=== PATIENT | female | born 1980 | race Caucasian/White ===

== ENCOUNTER → 2018-11-13 07:08 | Outpatient (CLI) | payer OTHER, SELFPAY ==
[2018-11-13 07:47] LABS: Add Manual Diff / Slide Review NO; Basophils Absolute Auto 0 /uL (0-100); Eosinophils Absolute Auto 400 /uL (0-450); Eosinophils Percent Auto 8.1 % (2-4); Hemoglobin 14.1 g/dL (12.0-16.0); Lymphocytes Absolute Auto 1500 /uL (1100-4500); Lymphocytes Percent Auto 33.3 % (25-40); Mean Corpuscular HGB Conc 33.5 % (30-36); Mean Corpuscular Hemoglobin 29.5 PG (26-34); Mean Corpuscular Volume 88.3 fL (80-100); Monocytes Absolute Auto 300 /uL (0-900); Neutrophils Absolute Auto 2400 /uL (1500-7000); Neutrophils Percent Auto 51.6 % (50-75); Platelet Count 279 X10^3/uL (150-400); Red Blood Cell Count 4.76 X10^6/uL (4.0-5.2); Red Cell Distribution Width 13.6 % (11.6-14.8); White Blood Cell Count 4.6 X10^3/uL (4.5-11.0)
[2018-11-13 08:01] LABS: Alanine Aminotransferase 19 IU/L (9-52); Albumin 4.3 g/dL (3.5-5.0); Albumin Globulin Ratio 1.3 (1.0-2.8); Alkaline Phosphatase 77 U/L (38-126); Aspartate Aminotransferase 27 IU/L (14-36); Bilirubin Total 0.8 mg/dL (0.2-1.3); Blood Urea Nitrogen 14 mg/dL (7-17); Carbon Dioxide 28 mmol/L (22-32); Chloride 101 mmol/L (98-107); Cholesterol 195 mg/dL (140-199); Estimated Glomerular Filt Rate > 60.0 mL/min (>60); Globulin 3.3 g/dL (1.7-4.1); Glucose 91 mg/dL (70-100); HDL Cholesterol 89 mg/dL (40-60); HEMOLYSIS 25 (0-50); LDL Cholesterol Calculated 91 mg/dL (<100); Potassium 4.4 mmol/L (3.4-5.1); Sodium 138 mmol/L (137-145); Total Protein 7.6 g/dL (6.3-8.2); Triglycerides 76 mg/dL (35-150)
[2018-11-21 23:34] LABS: (tTG) Ab, IgA < 1 U/mL
== END ==
PROVIDERS: Visit Provider Family Medicine
DX: R10.84 Generalized abdominal pain (principal); Z01.419 Encounter for gynecological examination (general) (routine) without abnormal findings
CPT/HCPCS: 36415; 80053; 80061; 82784; 83036; 83516; 85025; 86255

== ENCOUNTER → 2021-04-23 15:58 | Outpatient (CLI) | payer OTHER, SELFPAY ==
--- NOTE | 2021-04-23 | DI.MG.S_ITS ---
BILATERAL DIGITAL SCREENING MAMMOGRAM 3D/2D WITH CAD: 04/23/2021 CLINICAL: Routine screening. Baseline exam. No prior exams were available for comparison. The tissue of both breasts is heterogeneously dense. This may lower the sensitivity of mammography. Current study was also evaluated with a Computer Aided Detection (CAD) system. No significant masses, calcifications, or other findings are seen in either breast. IMPRESSION: NEGATIVE There is no mammographic evidence of malignancy. A 1 year screening mammogram is recommended. This exam was interpreted at Station ID: [id number]. NOTE: For mammograms, a report in lay terms will be sent to the patient. Approximately 15% of breast malignancies will not be visualized mammographically. In the management of a palpable breast mass, a negative mammogram must not discourage biopsy of a clinically suspicious lesion. Electronically Signed By: Russell Solis M.D., jr/alfonso:04/23/2021 16:24:01 letter sent: Normal Exam ACR BI-RADS Category 1: Negative 3341F
--- NOTE | 2021-04-23 16:02 | DI.US.S_ITS ---
PROCEDURE: US PELVIC COMPLETE INDICATIONS: Heavy periods TECHNIQUE: Real-time scanning was performed of the pelvic organs, with image documentation. Additional endovaginal scanning was necessary due to incomplete visualization of the adnexal and endometrial structures by transabdominal scanning. COMPARISON: None. FINDINGS: Uterus: Uterus is anteverted and normal in size at 9.1 x 4.2 x 5.0 cm. The myometrium is heterogeneous. The endometrium measures 10 mm combined thickness. Small amount of fluid within the lower uterine segment. Right lower uterine segment pedunculated fibroid is present measuring up to 4.1 cm. Ovaries: Dominant left follicular cyst measuring 1.3 cm; otherwise normal ovaries. Other: No pathologic free abdominal or pelvic fluid. IMPRESSION: 1. 4.1 cm right pedunculated subserosal fibroid. 2. Dominant left follicular cyst. We strive to produce accurate, complete, and clear reports of imaging services. To assist us in improving patient care, this report was composed using standard report templates and voice recognition software. Therefore, it may contain abnormal punctuation, insertions and/or omissions. Occasional wrong-word or sound-alike substitutions may occur. Though we review the report and make efforts to correct it, we do recommend that the report be read carefully in proper context to recognize any text inaccuracies. Dictated by: Lyle MEIER Interpreted: Petr Tinoco MD on 04/23/2021 at 17:00 Transcribed by: SUMMER on 04/23/2021 at 17:03 Approved by: Petr Tinoco M.D. on 04/23/2021 at 19:57
== END ==
PROVIDERS: Referring Provider Obstetrics & Gynecology; Visit Provider Obstetrics & Gynecology
DX: N92.0 Excessive and frequent menstruation with regular cycle (principal); Z12.31 Encounter for screening mammogram for malignant neoplasm of breast; D25.2 Subserosal leiomyoma of uterus; N83.02 Follicular cyst of left ovary
CPT/HCPCS: 76830; 76856; 77063; 77067

== ENCOUNTER → 2021-07-13 16:45 | Outpatient (CLI) | payer OTHER, SELFPAY | PROVIDERS: Visit Provider Obstetrics & Gynecology | DX: R30.0 Dysuria (principal) | CPT/HCPCS: 87077; 87086; 87186 ==

== ENCOUNTER → 2022-03-10 16:17 | Outpatient (CLI) | payer OTHER, SELFPAY ==
[2022-03-10 17:37] LABS: Appearance Urine UA CLEAR; Bilirubin Urine UA NEGATIVE (NEGATIVE); Color Urine UA YELLOW; Glucose Urine UA NEGATIVE (Negative); Ketones Urine UA NEGATIVE (NEGATIVE); Leukocyte Esterase Urine UA NEGATIVE (NEGATIVE); Nitrite Urine UA NEGATIVE (Negative); Occult Blood Urine UA 1+ (Negative); Protein Urine UA NEGATIVE (Negative); Specific Gravity Urine UA <=1.005 (1.000-1.035); Urobilinogen Urine UA 0.2 E.U./dL (0.2)
[2022-03-10 17:40] LABS: pH Urine UA 6.5 (4.5-8.0)
[2022-03-10 18:29] LABS: Bacteria Urine None Seen; Culture Indicated Urine Cult Not Indicated; RBC Urine 0-1/HPF (0-5/HPF); Squamous Epithelial Cell Urine None Seen (0-5/HPF); WBC Urine None Seen (0-5/HPF)
== END ==
PROVIDERS: Referring Provider Obstetrics & Gynecology; Visit Provider Obstetrics & Gynecology
DX: R35.0 Frequency of micturition (principal); R39.15 Urgency of urination
CPT/HCPCS: 81001

== ENCOUNTER → 2022-03-16 10:41 | Outpatient (CLI) | payer OTHER, SELFPAY ==
--- NOTE | 2022-03-16 10:42 | DI.US.S_ITS ---
PROCEDURE: US PELVIC COMPLETE INDICATIONS: FIBROID; OVARIAN CYST TECHNIQUE: Real-time scanning was performed of the pelvic organs, with image documentation. Additional endovaginal scanning was necessary due to incomplete visualization of the adnexal and endometrial structures by transabdominal scanning. COMPARISON: [facility], US, US PELVIC COMPLETE, 04/23/2021, 16:17. FINDINGS: Uterus: Uterus is anteverted and normal in size at 9.7 x 5.0 x 6.4 cm. The myometrium is homogeneous. The endometrium measures 13.9 mm combined thickness. There is a right Subserosal fibroid which measures 4.5 x 3.4 x 3.1 cm in the lower uterine segment. This previously measured 4.1 x 2.9 x 2.9 cm on the study dated April 23, 2021. Ovaries: The right ovary measures 3.1 x 2.6 x 3.5 cm, with a calculated ovarian volume of 14.4 cc. The left ovary measures 2.3 x 2.0 x 1.4 cm, with a calculated ovarian volume of 3.4 cc. The ovaries have a normal sonographic appearance. Less than 12 follicles can be seen in each ovary. There is a nonvascular complex cyst in the right ovary which measures 2.2 x 2.3 x 1.9 cm. Other: No pathologic free abdominal or pelvic fluid. IMPRESSION: 1. Slight increase in the size of the right lower uterine segment uterine fibroid when compared with the ultrasound dated April 23, 2021. 2. Probable right hemorrhagic cyst. Endometrioma could also be considered in the differential; however this is new when compared with the prior study favoring hemorrhagic cyst. 6-12 week follow-up recommended to ensure resolution of this finding. We strive to produce accurate, complete, and clear reports of imaging services. To assist us in improving patient care, this report was composed using standard report templates and voice recognition software. Therefore, it may contain abnormal punctuation, insertions and/or omissions. Occasional wrong-word or sound-alike substitutions may occur. Though we review the report and make efforts to correct it, we do recommend that the report be read carefully in proper context to recognize any text inaccuracies. Dictated by: Maribel Leigh M.D. on 03/16/2022 at 15:59 Approved by: Maribel Leigh M.D. on 03/16/2022 at 16:01
== END ==
PROVIDERS: PCP Family Medicine; Referring Provider Obstetrics & Gynecology; Visit Provider Obstetrics & Gynecology
DX: N92.0 Excessive and frequent menstruation with regular cycle (principal); D25.2 Subserosal leiomyoma of uterus; N83.291 Other ovarian cyst, right side
CPT/HCPCS: 76830; 76856

== ENCOUNTER → 2022-04-21 09:29 | Outpatient (CLI) | payer OTHER, SELFPAY ==
[2022-04-21 10:40] LABS: COVID-19 CEPHEID 4-PLEX PCR Negative (Negative); Influenza A - CEPHEID Flu A NEGATIVE (NEGATIVE); Influenza B - CEPHEID Flu B NEGATIVE (NEGATIVE); Respiratory Syncytial Virus Negative (Negative)
== END ==
PROVIDERS: PCP Family Medicine; Visit Provider Nurse Practitioner Family
DX: J02.9 Acute pharyngitis, unspecified (principal)
CPT/HCPCS: 0241U; 87070

== ENCOUNTER → 2022-09-05 16:17 | Outpatient (CLI) | payer OTHER, SELFPAY ==
--- NOTE | 2022-09-05 | DI.MG.S_ITS ---
BILATERAL DIGITAL SCREENING MAMMOGRAM 3D/2D WITH CAD: 09/05/2022 CLINICAL: Routine screening. Comparison is made to exam dated: 04/23/2021 mammogram - [facility]. Both breasts are heterogeneously dense, which may obscure small masses (category c / 51-75% glandular tissue). Current study was also evaluated with a Computer Aided Detection (CAD) system. No significant masses, calcifications, or other findings are seen in either breast. There has been no significant interval change. IMPRESSION: NEGATIVE There is no mammographic evidence of malignancy. A 1 year screening mammogram is recommended. Based on the Tyrer Cuzick model (a risk assessment model) the patient's lifetime risk is 13.0% and her 10 year risk is 1.9%. According to the ACR, ACS, and NCCN guidelines, an annual breast MRI exam along with mammogram is recommended if the patient's lifetime risk is 20% or greater. This exam was interpreted at Station ID: [id number]. NOTE: For mammograms, a report in lay terms will be sent to the patient. Approximately 15% of breast malignancies will not be visualized mammographically. In the management of a palpable breast mass, a negative mammogram must not discourage biopsy of a clinically suspicious lesion. Electronically Signed By: Luis M shrestha/alfonso:09/06/2022 08:06:19 letter sent: Normal Exam ACR BI-RADS Category 1: Negative 3341F
--- NOTE | 2022-09-05 16:18 | DI.US.S_ITS ---
PROCEDURE: US PELVIC COMPLETE INDICATIONS: OVARIAN CYST/FIBROID FOLLOW UP TECHNIQUE: Real-time scanning was performed of the pelvic organs, with image documentation. Additional endovaginal scanning was necessary due to incomplete visualization of the adnexal and endometrial structures by transabdominal scanning. COMPARISON: [facility], US, US PELVIC COMPLETE, 03/16/2022, 10:55. FINDINGS: Uterus: Uterus is anteverted and enlarged in size at 9.5 x 4.6 x 5.5 cm. The myometrium is mildly heterogeneous. 4.1 x 3.5 x 4.9 cm subserosal fibroid in anterior right myometrium is seen. This was previously measured at 4.5 x 3.4 x 3.1 cm in size. The endometrium measures 9.3 mm combined thickness. No gross endometrial mass or fluid. Ovaries: The right ovary measures 2.1 x 2.1 x 2.6 cm, with a calculated ovarian volume of 6.3 cc. The left ovary measures 3.8 x 2.6 x 3.2 cm, with a calculated ovarian volume of 16.8 cc. Dominant follicle is seen in left ovary measures 1.4 x 0.8 x 1.4 cm in size. Less than 12 follicles can be seen in each ovary. No adnexal masses are seen. Other: No pathologic free abdominal or pelvic fluid. IMPRESSION: 1. Dominant follicle in right ovary as above. Otherwise normal appearing bilateral ovaries. 2. Enlarged uterus with uterine fibroids slight increase in size since previous study. No gross endometrial mass or fluid. We strive to produce accurate, complete, and clear reports of imaging services. To assist us in improving patient care, this report was composed using standard report templates and voice recognition software. Therefore, it may contain abnormal punctuation, insertions and/or omissions. Occasional wrong-word or sound-alike substitutions may occur. Though we review the report and make efforts to correct it, we do recommend that the report be read carefully in proper context to recognize any text inaccuracies. Dictated by: Nick Lerner M.D. on 09/05/2022 at 17:33 Approved by: Nick Lerner M.D. on 09/05/2022 at 17:35
== END ==
PROVIDERS: PCP Family Medicine; Referring Provider Obstetrics & Gynecology; Visit Provider Obstetrics & Gynecology
DX: Z12.31 Encounter for screening mammogram for malignant neoplasm of breast (principal); D25.2 Subserosal leiomyoma of uterus; N85.2 Hypertrophy of uterus; N83.209 Unspecified ovarian cyst, unspecified side
CPT/HCPCS: 76830; 76856; 77063; 77067; 93975

== ENCOUNTER 2023-01-16 12:09 | Day surgery (SDC) | payer OTHER, SELFPAY ==
[2023-01-11 10:45] VITALS: BMI 29.9
[2023-01-16] VITALS (9 sets, daily range): BP systolic 100–134; BP diastolic 55–79; PULSE 70–94; RESP 15–20; TEMP 35.7–36.6; O2SAT 95–100; BMI 29.9
--- NOTE | 2023-01-16 | PATH_ITS ---
[facility] Accession Number: [id number] No. of containers..01 Tissue . 01 Material submitted: . uterus - UTERUS, BILATERAL FALLOPIAN TUBES . 01 Diagnosis: Uterus and Bilateral Fallopian Tubes; Hysterectomy and Bilateral Salpingectomy: Cervix: Mild chronic cervicitis with associated reactive and metaplastic changes, and tunnel clusters also present. Negative for dysplasia and malignancy. Endometrium: Proliferative phase endometrium without endometrial polyps, atypia, hyperplasia, and malignancy. Myometrium: Benign intramural leiomyoma, 4.5 cm in diameter. Focal area with prominent vascular ectasia. Bilateral fallopian tubes: No pathologic abnormalities. MRV 01/19/2023 1622 Local . 01 Electronically signed: . Lloyd Ford MD, Pathologist NPI- [id number] . 01 Gross description: . Received in formalin, labeled with the patient's name and uterus and bilateral tubes, is an intact uterus with attached cervix and two detached fallopian tube segments. The uterus and cervix weigh 190 grams, 10.4 cm fundus to cervix by 6.5 cm cornu to cornu by 4.8 cm anterior to posterior. The cervix is 5 cm long by up to 3.4 cm in diameter. The anterior cervix is inked blue. On the anterior right is a bulging 4.5 x 4.0 x 3.8 cm white-gatica firm fibrous nodule. The os is 0.7 cm and the endocervical mucosa is pink-white, smooth and glistening. The endometrial cavity is 6.0 x 2.0 cm, pink-gatica, plush and pillowy with no polyps or lesions. The endometrial thickness is up to 0.4 cm. The myometrium is pink-gatica and trabecular, 2.5 cm thick, with dilated vasculature near the cornu and one aforementioned white-gatica firm fibrous nodule. The nodule is free from hemorrhage, necrosis, and calcification. . The two detached fallopian tube segments are 3.8 and 4.0 cm long with an average 0.6 cm diameter. Both are fimbriated and undesignated. One isw arbitrarily inked blue. Armorer Technician sections are submitted: A1 - Anterior cervix. A2 - Posterior cervix. A3 - Anterior endomyometrium. A4 - Posterior endomyometrium. A5 - Hypervascular cornu. A6 - Armorer Technician nodule. A7 - Longer fallopian tube with entire, bisected fimbriae. A8 - Fontana fallopian tube with entire, bisected fimbriae. (SF:[id number]) /MRV 01/19/2023 1622 Local . 01 Pathologist provided ICD-10: N92.1, D25.9 . 01 CPT . 785688 Specimen Comment: A courtesy copy of this report has been sent to [phone] Performed at: 01 [facility] [address] [place] [address], [place], [place] [id number] MD Edward Arvizu MD Phone: [phone]
--- NOTE | 2023-01-16 09:32 | PM.PREOP ---
Pre-operative Note COVID-19 COVID-19 status: Not tested Interval Note History & Physical reviewed/Exam performed by Physician: Yes Changes to H&P: No
[2023-01-16] MEDS: LACTATED RINGERS 1,000 ML 42 ML IV ×2 (12:47→13:51)
[2023-01-16] MEDS: SCOPOLAMINE 1 PATCH TOP (12:48)
--- NOTE | 2023-01-16 12:51 | SUR.OPER ---
Lithotomy on padded OR bed. [place] Pad Positioner under torso. Head on pillow, arms padded and tucked at sides. Legs secured in padded yellow fins stirrups.
[2023-01-16] MEDS: CEFAZOLIN 2 GM/100 ML PREMIX 100 ML IV (13:20)
[2023-01-16] MEDS: ACETAMINOPHEN IV 1,000 MG/100 ML VIAL 400 MG IV (13:25)
[2023-01-16] MEDS: BUPIVACAINE 0.25% (PF) 30 ML, EPINEPHrine 0.15 MG INJ (13:53)
[2023-01-16] MEDS: ROPIVACAINE 0.2% PF 2 MG/ML 20ML AMP 20 ML INJ (15:13)
[2023-01-16] MEDS: ONDANSETRON 4 MG/2 ML INJ IV (15:36)
--- NOTE | 2023-01-16 15:44 | P.OP_ITS ---
Operative Date/Time/Diagnoses Date of procedure: 01/16/23 Time of procedure: 13:45 Pre-op diagnosis: Menometrorrhagia Uterine fibroid Adenomyosis (Presumptive diagnosis) Post-op diagnosis: same Procedure & Clinicians Procedure: Procedures Operation Date: 01/16/23 13:30 Actual Procedure Side Surgeon p Total Laparoscopic Hysterectomy with bilateral salpingectomies Not Applicable Bharathi Diehl MD Indications: Mirna is a 41-year-old , LMP ongoing who returned in December after having a follow-up ultrasound performed on 09/05/2022 which showed: PROCEDURE:? US PELVIC COMPLETE ? INDICATIONS:? OVARIAN CYST/FIBROID FOLLOW UP ? TECHNIQUE:? Real-time scanning was performed of the pelvic organs, with image documentation.? Additional endovaginal scanning was necessary due to incomplete visualization of the adnexal and endometrial structures by transabdominal scanning.? ? COMPARISON:? [facility], , US PELVIC COMPLETE, 03/16/2022, 10:55. ? FINDINGS:? ?? Uterus:? Uterus is anteverted and enlarged in size at 9.5 x 4.6 x 5.5 cm. The myometrium is mildly heterogeneous.? 4.1 x 3.5 x 4.9 cm subserosal fibroid in anterior right myometrium is seen.? This was previously measured at 4.5 x 3.4 x 3.1 cm in size.? The endometrium measures 9.3 mm combined thickness.? No gross endometrial mass or fluid. ? Ovaries:? The right ovary measures 2.1 x 2.1 x 2.6 cm, with a calculated ovarian volume of 6.3 cc. The left ovary measures 3.8 x 2.6 x 3.2 cm, with a calculated ovarian volume of 16.8 cc.? Dominant follicle is seen in left ovary measures 1.4 x 0.8 x 1.4 cm in size. ?Less than 12 follicles can be seen in each ovary.? No adnexal masses are seen. ? Other:? No pathologic free abdominal or pelvic fluid.? ? IMPRESSION:? 1. Dominant follicle in right ovary as above.? Otherwise normal appearing bilateral ovaries. 2. Enlarged uterus with uterine fibroids slight increase in size since previous study.? No gross endometrial mass or fluid. Patient is aware of these results and aware that over time both uterus is enlarged slightly but also the fibroid in the right lateral lower uterine segment is also continuing to grow. Her menses remain irregular without intermenstrual or postcoital bleeding but the flow is extremely heavy lasting 5- 7 days with clots and the patient has recently been diagnosed as being anemic. She has been started on iron by her PCP for the anemia which was discovered upon evaluation of hair loss. Patient has been taking tranexamic acid in reduce doses because full dosage of 1300 mg t.i.d. was not well tolerated. TXA has been helpful but her periods remain 5-7 days in length although the flow is slightly less. Endometrial biopsy performed 12/30/2022 be benign secretory endometrium. Pap performed 03/2021 shows no cytological abnormality with negative HPV. After consideration of all therapeutic options, patient would very much like to proceed with hysterectomy with bilateral salpingectomy as soon as it can be scheduled. She presents today for her scheduled surgery. Surgeon: Bharathi Diehl Emergency Medical Service Manager: Mai Arenas Anesthesia Type: General Operative Notes Findings: The anterior cul-de-sac demonstrates changes consistent with prior section. The uterus is upper limits of normal size and boggy. Fallopian tubes demonstrates changes consistent with prior tubal ligation. Distal fragments of fallopian tube remain on both sides adjacent to the ovary. Both ovaries appear to be normal. There was no evidence of endometriosis in the posterior cul-de-sac or anterior cul-de-sac. There was a single fibroid which is present subserosal early both anterior and posterior on the right side of the lower and mid uterine segments. Access to the ascending uterine vessels was available distal to the inferior edge of the fibroid.. No abnormality of the Closure Type: primary Specimen(s): left tube, right tube and uterus Applied: catheter Estimated blood loss (mL): 100 Blood products transfused: none Procedure in detail: With the patient in modified dorsal lithotomy position preparations were made by prepping and draping the patient in usual manner for vaginal surgery and insertion of Bird catheter. A pre-surgical time-out was then taken in accordance with formerly [facility] policy. A bivalve speculum was then placed in the vagina and the cervix visualized. The anterior lip of the cervix was then grasped with a single-tooth tenaculum. The uterus was sounded to 8 cm, the endocervical canal dilated slightly, and a Outbrain uterine manipulator with a medium colpotomy cup was placed. The umbilicus was then infiltrated with 0.5% Marcaine with epinephrine. A 1 cm umbilical incision was made transversely and a Veress needle was used to insufflate the abdominal cavity with carbon dioxide. Once the abdomen was appropriately insufflated, a 5 mm trocar and sleeve were then placed through the umbilical incision. The scope was placed through the trocar and the initial assessment of the intra-abdominal contents carried out. A 2nd and 3rd 5 mm port was then placed 1st in the right mid quadrant from then the left mid quadrant by infiltration of the skin and subcutaneous tissues, a 1 cm transverse incision and insertion of the 5 mm bladeless port. Using a 3 puncture technique, the abdomen and pelvis were inspected laparoscopy and photographically documented. Uterus is mobilized with the Ecopolare manipulator and attention turned to the left adnexa. The distal tube was then grasped and the fimbria ovarica divided after coagulation with the PowerSeal device. The distal fragment of 2 was then removed through 1 5 mm ports. The dissection was then carried out toward the cornua then carried down using the PowerSeal device so as to divide the utero-ovarian ligament and the round ligament with blunt and sharp dissection of the broad down to the level of the uterine artery. The uterine artery was then skeletonized after development of a bladder flap, coagulated, and divided. Once hemostasis was assured on the left side attention was turned to the right and the distal tubal fragment was coagualed and divided then removed through one of the 5 mm ports. The utero-ovarian ligament, round ligament, and broad ligament were dissected in a fashion exactly the same as it had been on the left while shirting along the lateral surface of the fibroid. The right uterine artery was then visualized after skeletonization and coagulated and divided. The uterus was seen to matthew after coagulation of both your arteries and the cup was identified through the vaginal muscularis at its insertion with the body of the cervix. Circumferential excision of the vaginal cup was accomplished without difficulty using monopolar current and the uterus mobilized. The uterus was then removed through the vagina and the vaginal cuff closed [id number] with a series of 0 Vicryl [id number] stitches. Hemostasis was excellent, the abdomen was re-insufflated, and the pelvis ins pected laparoscopically. The pelvis was inspected for any abnormality or bleeding, and the ureters were each seen to be peristalsing freely. With complete hemostasis assured, the pneumoperitoneum was vented and the ports removed. All of the 5 mm ports were then closed with 4-0 Monocryl on the skin using inverted interrupted sutures. Skin glue was placed and after the glue was dried, an appropriate dressing was applied. The case was then terminated, the patient awakened, and then transferred to PACU after having tolerated the procedure well. Complications: none Post-operative Condition: stable Disposition: PACU Plan for aftercare: Recovery in ambulatory surgery in discharge home later today if pain is under control and she is tolerating oral intake well.
--- NOTE | 2023-01-16 15:49 | SUR.PHASEI ---
after oral airway was removed, patient coughed/vomited a small amount of clear fluid. Anesthesiologist present, patient's mouth was suctioned. Zofran provided.
[2023-01-16] MEDS: OXYCODONE IR 5 MG TABLET PO (16:45)
--- NOTE | 2023-01-16 16:51 | SUR.PHASEI ---
Report was called to Viky, then patient transferred to the floor with her belongings bag x2. Patient reported mild nausea before transfer. Queasease and thompson estephania provided. Bedside report given to Viky. Condition stable.
--- NOTE | 2023-01-16 17:09 | PC.NURSE ---
Patient arrived from PACU at 1645 this afternoon, A&OX4, VSS, on RA. She reports feeling nauseated and pain to abdomen 5-6/10 this evening. Dressings to abdomen x3 lap sites c/d/i. Bird in place. LR at 100 ml/hr. Call light in reach, SCD's on. Admission assessment completed. at bedside supportive, frequent monitoring.
--- NOTE | 2023-01-16 18:16 | PM.DS.1 ---
History of Present Illness History of Present Illness Date Patient Seen: 01/16/23 Time Patient Seen: 18:16 Chief complaint: Menometrorrhagia, Fibroid, Adenomyosis Narrative: Mirna is a 41-year-old , LMP ongoing who returned in December after having a follow-up ultrasound performed on 09/05/2022 which showed: PROCEDURE:? US PELVIC COMPLETE ? INDICATIONS:? OVARIAN CYST/FIBROID FOLLOW UP ? TECHNIQUE:? Real-time scanning was performed of the pelvic organs, with image documentation.? Additional endovaginal scanning was necessary due to incomplete visualization of the adnexal and endometrial structures by transabdominal scanning.? ? COMPARISON:? Located Within [facility], , US PELVIC COMPLETE, 03/16/2022, 10:55. ? FINDINGS:? ?? Uterus:? Uterus is anteverted and enlarged in size at 9.5 x 4.6 x 5.5 cm. The myometrium is mildly heterogeneous.? 4.1 x 3.5 x 4.9 cm subserosal fibroid in anterior right myometrium is seen.? This was previously measured at 4.5 x 3.4 x 3.1 cm in size.? The endometrium measures 9.3 mm combined thickness.? No gross endometrial mass or fluid. ? Ovaries:? The right ovary measures 2.1 x 2.1 x 2.6 cm, with a calculated ovarian volume of 6.3 cc. The left ovary measures 3.8 x 2.6 x 3.2 cm, with a calculated ovarian volume of 16.8 cc.? Dominant follicle is seen in left ovary measures 1.4 x 0.8 x 1.4 cm in size. ?Less than 12 follicles can be seen in each ovary.? No adnexal masses are seen. ? Other:? No pathologic free abdominal or pelvic fluid.? ? IMPRESSION:? 1. Dominant follicle in right ovary as above.? Otherwise normal appearing bilateral ovaries. 2. Enlarged uterus with uterine fibroids slight increase in size since previous study.? No gross endometrial mass or fluid. Patient is aware of these results and aware that over time both uterus is enlarged slightly but also the fibroid in the right lateral lower uterine segment is also continuing to grow. Her menses remain irregular without intermenstrual or postcoital bleeding but the flow is extremely heavy lasting 5-7 days with clots and the patient has recently been diagnosed as being anemic. She has been started on iron by her PCP for the anemia which was discovered upon evaluation of hair loss. Patient has been taking tranexamic acid in reduce doses because full dosage of 1300 mg t.i.d. was not well tolerated. TXA has been helpful but her periods remain 5-7 days in length although the flow is slightly less. Endometrial biopsy performed 12/30/2022 be benign secretory endometrium. Pap performed 03/2021 shows no cytological abnormality with negative HPV. After consideration of all therapeutic options, patient would very much like to proceed with hysterectomy with bilateral salpingectomy as soon as it can be scheduled. She presents today for her scheduled surgery. Discharge Providers Provider Date of admission: 01/16/2023 Discharge Date: 01/16/23 Primary care physician: John Leiva MD Discharge provider: Bharathi Diehl MD Summary Hospital Course Discharge Diagnosis: Menometrorrhagia Uterine fibroid Adenomyosis S/P total laparoscopic hysterectomy with bilateral salpingectomy Hospital Course: Mirna was admitted on the morning of 01/16/2023 and underwent an uneventful total laparoscopic hysterectomy with bilateral salpingectomy. Full details of the procedure are well summarized on my operative note of that date. Following surgery she did extremely well with prompt return of bowel and bladder function, she is ambulating independently, tolerating a regular diet, and her pain is well controlled with oral pain medications. She will be discharged on the afternoon of 01/16/2023 in an afebrile normotensive condition after counseling regarding precautionary symptoms, limitations of activity, medications, and plans for follow-up which will be in 2 weeks. Medications at discharge include resumption of all preoperative medications, and oxycodone 5 mg every 4-6 hours as needed for pain, dispense 20 with no refills. Status at Discharge Cognitive/behavioral status at discharge: oriented Functional status at discharge: independent ambulation Overall status at discharge: patient is progressing back to baseline Time Spent with Patient Time spent: Less than 30 minutes Exam Vital Signs (past 8 hours): - 01/16/23 12:28 01/16/23 15:33 01/16/23 15:38 Temperature 98 F 96.8 F L Pulse Rate 86 88 93 H Respiratory Rate 17 18 16 Blood Pressure 134/79 109/64 108/66 Pulse Oximetry 100 98 97 Oxygen Delivery Method Room Air Simple Mask Room Air Oxygen Flow Rate 23 15:43 01/16/23 15:48 01/16/23 15:59 Temperature 97.3 F L Pulse Rate 94 H 86 84 Respiratory Rate 15 15 15 Blood Pressure 105/62 104/63 105/79 Pulse Oximetry 97 95 97 Oxygen Delivery Method Room Air Room Air Room Air Oxygen Flow Rate 01/16/23 17:05 01/16/23 17:35 Temperature 96.9 F L 97.1 F L Pulse Rate 76 70 Respiratory Rate 18 18 Blood Pressure 104/55 L 100/59 L Pulse Oximetry 99 99 Oxygen Delivery Method Oxygen Flow Rate 0 0 Oxygen Delivery Method Room Air Oxygen Flow Rate 0 Const General: cooperative and comfortable Nutritional Appearance: average body habitus Orientation: alert and oriented x3 HENMT Head: normal to inspection, atraumatic and abrasion Ears: hearing grossly normal bilaterally Face and sinus: face symmetric Eyes General: appearance normal, both eyes and all related structures Conjunctivae: conjunctivae normal Sclera: sclerae normal EOM: EOM intact bilaterally Neck Neck: normal visual inspection Resp Effort & Inspection: normal respiratory effort and able to speak in complete sentences Auscultation: clear to auscultation bilaterally Cardio Rate: regular rate Rhythm: regular rhythm Heart Sounds: S1 normal, S2 normal and no murmurs GI Inspection: normal to inspection and incision (Surgical dressings clean and dry) Palpation: soft, no hepatosplenomegaly and tender (Mild, diffuse postsurgical tenderness) External Female Exam: other (No significant bleeding noted) Extrem General: no calf tenderness Psych Appearance: grossly normal Mental Status: mental status grossly normal Speech and Movement: speech and movement normal Mood: congruent mood Affect: normal affect Attitude: cooperative Thought Process: normal Thought Content: normal Judgment: judgment good [facility] Medical History (Updated 01/11/23 @ 10:51 by Vera Grewal RN) Eczema (2010) Acne (1995) Foot pain (2020) Asthma (1989) Surgical History (Updated 01/11/23 @ 10:51 by Vera Grewal RN) History of Hx of sinus surgery (1999) Social History household members: spouse and children Smoking Status: Never smoker alcohol intake: current Discharge Assessment & Plan Assessment and Plan Assessment: Menorrhagia Uterine Fibroid Adenomyosis S/P Total laparoscopic hysterectomy with bilateral salpingectomy Plan of Treatment: Routine post-operative care Discharge Plan Discharge Plan Patient Disposition: Home Provider Discharge Comment: Please review the written instructions you received when you were discharged from the hospital. Your follow-up appointment will be scheduled for 2 weeks after your surgery and I look forward to seeing you then. If however in the meanwhile you have any issues, concerns, or questions, please contact me either through the office phone at [phone], or via the patient portal. Discharge orders & Medications Discharge Orders: Discharge (Order); Ordered 01/16/23 Ordered By: Bharathi Diehl Prescriptions: New oxycodone 5 mg tablet 5 mg PO Q4H PRN (Reason: pain) Qty: 20 0RF Continued albuterol sulfate 90 mcg/actuation HFA aerosol inhaler 2 puff inhalation Q6H PRN (Reason: allergies) naproxen 500 mg tablet 500 mg PO Q8H PRN (Reason: pain) Qty: 30 12RF Rx Instructions: For best effect, start medication 1-2 days prior to expected onset of period Zyrtec 10 mg Capsule 10 mg PO DAILY Follow up/Referrals: John Leiva MD [Primary Care Provider] - Bharathi Diehl MD [Physician] - Diet/Activity/Treatments Diet: Diet as Tolerated Activity: As tolerated Other treatments: [id number] Tylenol and/or ibuprofen may be used for additional pain relief. Jldo-[id number] stool softeners and/or MiraLax may be used as needed for constipation. Skin/Wound/Dressing Care Report to your healthcare provider any signs of infection, such as:: chills, fever, increased pain, unusual drainage and unusual redness Dressing: Dressing should be removed on the morning of 01/18/2023 Visit Report/Discharge Packet Instructions: DI for Hysterectomy, DI for Laparoscopy, DI for Prescription Opioid Use Print Language: Filipino Discharge Data Primary Care Provider: John Leiva Attending Provider: Bharathi Diehl
[2023-01-16] MEDS: LACTATED RINGERS 1,000 ML 100 ML IV (18:56)
[2023-01-16] MEDS: ACETAMINOPHEN 325 MG TABLET 650 MG PO (18:58)
--- NOTE | 2023-01-16 20:13 | PC.NURSE ---
Discharge Note- Patient discharged home per MD orders. Discharge paperwork reviewed wiuth patient and signed. IV line removed. Patient dressed self and packed up all personal belongings. Patient taken by wheelchair to private car by [employer] andf at side at 2009.
== END 2023-01-16 20:10 | disposition home or self-care (01) ==
LOC: OR 12:10 → AC 12:11
PROVIDERS: PCP Family Medicine; Referring Provider Obstetrics & Gynecology; Visit Provider Obstetrics & Gynecology
PROC: 0UT94ZZ Resection of Uterus, Percutaneous Endoscopic Approach (ICD-10-PCS; CPT 58571; principal; 2023-01-16 13:30)
DX: N92.0 Excessive and frequent menstruation with regular cycle (principal); N72 Inflammatory disease of cervix uteri; D25.1 Intramural leiomyoma of uterus
CPT/HCPCS: 58571; J0131; J0171; J0690; J1100; J1170; J2405; J2704; J2795; J3010; J3490

== ENCOUNTER → 2023-11-01 17:03 | Outpatient (CLI) | payer OTHER, SELFPAY ==
--- NOTE | 2023-11-01 | DI.MG.S_ITS ---
BILATERAL DIGITAL SCREENING MAMMOGRAM 3D/2D WITH CAD: 11/01/2023 CLINICAL: Routine screening. Comparison is made to exams dated: 09/05/2022 mammogram and 04/23/2021 mammogram - [facility]. Both breasts are heterogeneously dense, which may obscure small masses (category c / 51-75% glandular tissue). Current study was also evaluated with a Computer Aided Detection (CAD) system. No significant masses, calcifications, or other findings are seen in either breast. There has been no significant interval change. IMPRESSION: NEGATIVE There is no mammographic evidence of malignancy. A 1 year screening mammogram is recommended. Based on the Tyrer Cuzick model (a risk assessment model) the patient's lifetime risk is 13.0% and her 10 year risk is 2.1%. According to the ACR, ACS, and NCCN guidelines, an annual breast MRI exam along with mammogram is recommended if the patient's lifetime risk is 20% or greater. This exam was interpreted at Station ID: [id number]. NOTE: For mammograms, a report in lay terms will be sent to the patient. Approximately 15% of breast malignancies will not be visualized mammographically. In the management of a palpable breast mass, a negative mammogram must not discourage biopsy of a clinically suspicious lesion. Electronically Signed By: Eben [email or web address]:11/10/2023 12:03:54 letter sent: Normal Exam ACR BI-RADS Category 1: Negative [id number]
[2023-11-01 09:34] VITALS: BMI 29.9
== END ==
PROVIDERS: PCP Family Medicine; Referring Provider Obstetrics & Gynecology; Visit Provider Obstetrics & Gynecology
DX: Z12.31 Encounter for screening mammogram for malignant neoplasm of breast (principal); R92.333 Mammographic heterogeneous density, bilateral breasts
CPT/HCPCS: 77063; 77067

== ENCOUNTER → 2024-01-20 12:30 | Outpatient (CLI) | payer OTHER, SELFPAY ==
[2023-11-01 09:34] VITALS: BMI 29.9
[2024-01-20 12:49] LABS: Add Manual Diff / Slide Review NO; Basophils Absolute Auto 100 /uL (0-100); Basophils Percent Auto 1.2 % (0-2); Eosinophils Absolute Auto 300 /uL (0-450); Eosinophils Percent Auto 4.1 % (2-4); Hemoglobin 13.3 g/dL (12.0-16.0); Lymphocytes Absolute Auto 1400 /uL (1100-4500); Lymphocytes Percent Auto 20.4 % (25-40); Mean Corpuscular HGB Conc 34.1 % (30-36); Mean Corpuscular Hemoglobin 30.2 PG (26-34); Mean Corpuscular Volume 88.6 fL (80-100); Monocytes Absolute Auto 400 /uL (0-900); Monocytes Percent Auto 5.5 % (3-14); Neutrophils Absolute Auto 4600 /uL (1500-7000); Neutrophils Percent Auto 68.8 % (50-75); Platelet Count 330 X10^3/uL (150-400); Red Cell Distribution Width 12.9 % (11.6-14.8); White Blood Cell Count 6.7 X10^3/uL (4.5-11.0)
[2024-01-20 13:12] LABS: Alanine Aminotransferase 16 IU/L (<35); Albumin 4.1 g/dL (3.5-5.0); Albumin Globulin Ratio 1.5 (1.0-2.8); Alkaline Phosphatase 77 U/L (38-126); Aspartate Aminotransferase 23 IU/L (14-36); BUN Creatinine Ratio 17.1 (6-22); Bilirubin Total 0.4 mg/dL (0.2-1.3); Blood Urea Nitrogen 12 mg/dL (7-17); Calcium 9.5 mg/dL (8.4-10.2); Carbon Dioxide 28 mmol/L (22-32); Chloride 102 mmol/L (98-107); Estimated Glomerular Filt Rate > 60 mL/min (>60); Globulin 2.8 g/dL (1.7-4.1); Glucose 84 mg/dL (70-100); HEMOLYSIS < 15 (0-50); Potassium 4.3 mmol/L (3.4-5.1); Sodium 135 mmol/L (137-145); Total Protein 6.9 g/dL (6.3-8.2)
[2024-01-20 13:42] LABS: TSH w/ Reflex to FT4 < 0.02 uIU/mL (0.47-4.68)
[2024-01-20 13:46] LABS: Ferritin 10 ng/mL (6-137)
[2024-01-20 14:06] LABS: Vitamin D 25 Hydroxy (D3) 42.9 ng/mL (30.0-100.0)
[2024-01-20 14:08] LABS: Free T4, Direct Thyroxine 0.91 ng/dL (0.78-2.19)
== END ==
PROVIDERS: PCP Family Medicine; Referring Provider Obstetrics & Gynecology; Visit Provider Obstetrics & Gynecology
DX: L65.8 Other specified nonscarring hair loss (principal)
CPT/HCPCS: 36415; 80053; 82306; 82627; 82728; 84402; 84403; 84439; 84443; 85025

== ENCOUNTER → 2024-01-24 07:06 | Outpatient (CLI) | payer OTHER, SELFPAY ==
[2023-11-01 09:34] VITALS: BMI 29.9
--- NOTE | 2024-01-24 07:15 | DI.US.S_ITS ---
PROCEDURE: US THYROID INDICATIONS: Subclinical hyperthyroid TECHNIQUE: Real-time scanning was performed of the thyroid gland, with image documentation. COMPARISON: None. FINDINGS: Thyroid: Right lobe measures 4.8 x 1.4 x 1.2 cm. Left lobe measures 4.8 x 1.6 x 1.1 cm. Isthmus is 0.24 cm thick. Echotexture is homogeneous. No discrete thyroid nodule is seen. No neck soft tissue lymphadenopathy. IMPRESSION: Normal ultrasound examination of thyroid gland. ACR TI-RADS definitions and recommendations: TI-RADS 1 (benign): 0 points. FNA not needed. TI-RADS 2 (not suspicious): 2 points. FNA not needed. TI-RADS 3 (mildly suspicious): 3 points. * FNA if 2.5 cm or larger, follow up if 1.5 cm or larger (at 1, 3, and 5 years). TI-RADS 4 (moderately suspicious): 4-6 points. * FNA if 1.5 cm or larger, follow up if 1 cm or larger (at 1, 2, 3, and 5 years). TI-RADS 5 (highly suspicious): 7 points or more. * FNA if 1 cm or larger, follow up if 0.5 cm or larger (every year for 5 years). Dictated by: Nick Lerner M.D. on 01/24/2024 at 13:05 Approved by: Nikc Lerner M.D. on 01/24/2024 at 13:07
== END ==
LOC: US 07:06
PROVIDERS: PCP Family Medicine; Referring Provider Obstetrics & Gynecology; Visit Provider Obstetrics & Gynecology
DX: E05.90 Thyrotoxicosis, unspecified without thyrotoxic crisis or storm (principal)
CPT/HCPCS: 76536

== ENCOUNTER → 2025-01-10 10:17 | Outpatient (CLI) | payer OTHER, SELFPAY ==
[2024-10-14 13:45] VITALS: BMI 29.9
--- NOTE | 2025-01-10 10:19 | DI.RAD.S_ITS ---
PROCEDURE: XR CERVICAL SPINE 5V INDICATIONS: NECK PAIN TECHNIQUE: 5 views of the cervical spine acquired. COMPARISON: None. FINDINGS: Degenerative changes of the cervical spine with disc narrowing, osteophytes, uncovertebral and facet hypertrophic changes most notably at C5-6 and C6-7 with mild neural foraminal narrowing left greater than right. No radiographic evidence of fracture, subluxation or abnormal prevertebral soft tissue swelling. Cervical vertebral body heights, alignment within normal limits. IMPRESSION: Degenerative changes most notably C5-6 and C6-7. If symptoms persist or worsen, or there is high clinical suspicion of cervical abnormality, MRI could be performed. Dictated by: Sanya Valente M.D. on 01/10/2025 at 10:59 Approved by: Sanya Valente M.D. on 01/10/2025 at 11:01
== END ==
PROVIDERS: PCP Family Medicine; Referring Provider Physical Medicine & Rehabilitation; Visit Provider Physical Medicine & Rehabilitation
DX: M48.02 Spinal stenosis, cervical region (principal); M54.2 Cervicalgia
CPT/HCPCS: 72050